=== PATIENT | female | born 1940 | race Caucasian/White ===

== ENCOUNTER 2020-12-25 13:53 | Inpatient (IN) | payer OTHER, MEDICAID ==
[~2020-12-25] VITALS: Ht 152.4 cm; Wt 79.4 kg
[~2020-12-25 13:53] MED LIST: ATOR20TA65 MT; BRIM5DRO6 EACHEYE; BUSP10TA3 MT; CARV3.1242 MT; CHOL400D7 MT; DEME300T8 MT; DONE5TAB26 MT; IRBE150T24 MT; KETO5DRO80 EACHEYE; LEVO25TA7 PO; LUBI24CA5 MT; MEMA5TAB7 MT; METF-416 PO; NEOM7.5D8 EACHEYE; POTA8CAP20 MT; RALO60TA13 MT
[2020-12-25 14:56] LABS: BASOPHILS % 0.3 % (0.0-2.0); EOSINOPHILS % 0.2 % (0.0-5.0); HEMATOCRIT. 32.7 % (36.0-48.0); HEMOGLOBIN. 11.1 g/dL (12.0-16.0); LYMPHOCYTES % 7.4 % (20.0-50.0); MEAN CORPUSCULAR HEMOGLOBIN 28.6 pg (28.0-32.0); MEAN CORPUSCULAR VOLUME 83.9 fL (81.0-99.0); MEAN PLATELET VOLUME 7.6 fl (7.4-10.4); MONOCYTES % 7.8 % (2.0-8.0); NEUTROPHILS % 84.3 % (40.0-76.0); PLATELET 257 x1000/uL (130-400); RED CELL DISTRIBUTION WIDTH 15.4 % (11.6-14.6)
[2020-12-25 15:02] LABS: CHLORIDE 83 mEq/L (98-107)
[2020-12-25] MEDS ORDERED: FUROSEMIDE 100MG/10ML VIAL IV NR (15:42)
[2020-12-25] MEDS ORDERED: CALCIUM CHLORIDE 1GM/10ML SYR IV NR (15:45)
[2020-12-25] MEDS ORDERED: INSULIN REGULAR (HUMULIN R) 300UNITS/3ML VIAL IV NR (15:45)
[2020-12-25] MEDS ORDERED: DEXTROSE 50% WATER 50ML SYRINGE IV NR (15:45)
[2020-12-25] MEDS ORDERED: ALBUTEROL (0.083%) 2.5MG/3ML NEB HHN NR (15:45)
[2020-12-25] MEDS ORDERED: LORAZEPAM 2MG/ML CPJ IV ONE (17:45)
[2020-12-25 18:22] LABS: CHLORIDE 83 mEq/L (98-107)
[2020-12-25 21:10] VITALS: BP 157/93
[2020-12-25 21:53] VITALS: BP 157/93
[2020-12-25] MEDS ORDERED: DEXTROSE 50% WATER 50ML SYRINGE IV PRN (22:45)
[2020-12-25] MEDS ORDERED: CLONIDINE 0.1MG TABLET PO PRN (22:45)
[2020-12-25] MEDS ORDERED: ACETAMINOPHEN 325MG TABLET PO PRN (22:45)
[2020-12-25] MEDS ORDERED: SODIUM CHLORIDE 3% 500 ML IV NR (23:00)
[2020-12-25] MEDS ORDERED: SODIUM CHLORIDE 3% 200 ML IV NR (23:59)
[2020-12-26] VITALS (13 sets, daily range): BP systolic 99–143; BP diastolic 63–86
[2020-12-26] MEDS: DEMECLOCYCLINE HCL 300MG TABLET PO SCH ×3 (01:13→13:44)
[2020-12-26 06:24] LABS: BASOPHILS % 0.4 % (0.0-2.0); HEMATOCRIT. 31.9 % (36.0-48.0); LYMPHOCYTES % 10.3 % (20.0-50.0); MEAN CORPUSCULAR HEMOGLOBIN 28.3 pg (28.0-32.0); MEAN CORPUSCULAR VOLUME 82.1 fL (81.0-99.0); MONOCYTES % 13.9 % (2.0-8.0); NEUTROPHILS % 74.4 % (40.0-76.0); PLATELET 252 x1000/uL (130-400); RED BLOOD CELL COUNT 3.88 mill/uL (4.2-5.4); RED CELL DISTRIBUTION WIDTH 15.6 % (11.6-14.6)
[2020-12-26 06:26] LABS: CHLORIDE 84 mEq/L (98-107)
[2020-12-26 06:51] LABS: T4 FREE 1.42 ng/dL (0.76-1.46)
[2020-12-26] MEDS: LEVOTHYROXINE SODIUM 25MCG TABLET PO SCH (07:50)
[2020-12-26] MEDS: INSULIN LISPRO 100 UNITS/ML SUBCUT SCH ×4 (07:51→21:52)
[2020-12-26] MEDS: BLOOD SUGAR DIAGNOSTIC STRIP TEST SCH ×4 (07:51→21:39)
[2020-12-26] MEDS: KETOROLAC TROMETHAMINE 0.4% OPHTH 5ML EACHEYE SCH ×4 (08:49→21:39)
[2020-12-26] MEDS: LOSARTAN POTASSIUM 50 MG TABLET PO SCH (08:50)
[2020-12-26] MEDS: BRIMONIDINE 0.2% OPHTH DROPS 5ML EACHEYE SCH ×2 (08:50→17:28)
[2020-12-26] MEDS: ENOXAPARIN 40MG/0.4ML SYR SUBCUT SCH (08:51)
[2020-12-26] MEDS ORDERED: MEDICATION NOT ON FORMULARY EA (Brimonidine Tartrate 1 DROP) EACHEYE SCH (09:00)
[2020-12-26] MEDS ORDERED: *PATIENT'S OWN MEDICATION STORAGE XX SCH (11:30)
[2020-12-26 12:09] LABS: CHLORIDE 84 mEq/L (98-107)
[2020-12-26] MEDS: FUROSEMIDE 40MG/4ML VIAL IVP SCH (21:38)
[2020-12-27] VITALS (12 sets, daily range): BP systolic 99–149; BP diastolic 46–84
[2020-12-27 06:42] LABS: CHLORIDE 85 mEq/L (98-107)
[2020-12-27 06:54] LABS: HEMATOCRIT. 30.7 % (36.0-48.0); HEMOGLOBIN. 10.6 g/dL (12.0-16.0); MEAN CORPUSCULAR HEMOGLOBIN 28.7 pg (28.0-32.0); MEAN CORPUSCULAR VOLUME 83.6 fL (81.0-99.0); MEAN PLATELET VOLUME 7.8 fl (7.4-10.4); PLATELET 232 x1000/uL (130-400); RED BLOOD CELL COUNT 3.68 mill/uL (4.2-5.4); RED CELL DISTRIBUTION WIDTH 15.6 % (11.6-14.6)
[2020-12-27 06:59] LABS: PHOSPHORUS 4.2 mg/dL (2.5-4.9)
[2020-12-27] MEDS: BLOOD SUGAR DIAGNOSTIC STRIP TEST SCH ×4 (07:54→20:29)
[2020-12-27] MEDS: INSULIN LISPRO 100 UNITS/ML SUBCUT SCH ×4 (08:10→20:52)
[2020-12-27] MEDS: BRIMONIDINE 0.2% OPHTH DROPS 5ML EACHEYE SCH ×2 (08:10→18:08)
[2020-12-27] MEDS: KETOROLAC TROMETHAMINE 0.4% OPHTH 5ML EACHEYE SCH ×4 (08:10→20:51)
[2020-12-27] MEDS: FUROSEMIDE 40MG/4ML VIAL IVP SCH ×2 (08:10→20:51)
[2020-12-27] MEDS: LEVOTHYROXINE SODIUM 25MCG TABLET PO SCH (08:11)
[2020-12-27] MEDS: ENOXAPARIN 40MG/0.4ML SYR SUBCUT SCH (08:11)
[2020-12-27] MEDS: LOSARTAN POTASSIUM 50 MG TABLET PO SCH (08:11)
[2020-12-27 08:55] LABS: CLARITY URINE CLOUDY (CLEAR); COLOR URINE DK YELLOW (YELLOW); KETONES URINE NEGATIVE (NEGATIVE); LEUKOCYTE ESTERASE URINE TRACE (NEGATIVE); NITRITE URINE NEGATIVE (NEGATIVE); OCCULT BLOOD URINE TRACE (NEGATIVE); PROTEIN URINE TRACE (NEGATIVE); SPECIFIC GRAVITY URINE 1.026 (1.005-1.030); UROBILINOGEN URINE 0.2 E.U./dL (0.2-1.0)
[2020-12-27] MEDS ORDERED: POTASSIUM CHLORIDE 20MEQ TABLET SR PO NR (11:00)
[2020-12-27] MEDS ORDERED: MAGNESIUM 2 G PREMIX 50 ML IV NR (13:00)
[2020-12-27] MEDS ORDERED: LORAZEPAM 2MG/ML CPJ IV PRN (16:45)
[2020-12-27] MEDS ORDERED: ONDANSETRON HCL 4MG/2ML INJ IV PRN (16:45)
[2020-12-27] MEDS ORDERED: BISACODYL 10MG SUPP PR PRN (16:45)
[2020-12-27] MEDS ORDERED: HYDROCODONE/ACETAMINOPHEN 5/325MG TABLET PO PRN (16:45)
[2020-12-27] MEDS ORDERED: IPRATROPIUM/ALBUTEROL 0.5-3(2.5)MG/3ML NEB HHN PRN (16:45)
[2020-12-27] MEDS ORDERED: FAMOTIDINE 20MG TABLET PO SCH (21:00)
[2020-12-27] MEDS ORDERED: NALOXONE HCL 0.4MG/ML VIAL IV PRN (23:00)
[2020-12-27] MEDS ORDERED: IOHEXOL-300 100 ML BOTTLE ONE (23:25)
[2020-12-28] VITALS (10 sets, daily range): BP systolic 103–152; BP diastolic 48–77
[2020-12-28 06:11] LABS: PLATELET ESTIMATE NORMAL
[2020-12-28 06:57] LABS: CHLORIDE 88 mEq/L (98-107)
[2020-12-28 07:08] LABS: PHOSPHORUS 4.8 mg/dL (2.5-4.9)
[2020-12-28 07:11] LABS: HEMATOCRIT. 32.1 % (36.0-48.0); MEAN CORPUSCULAR HEMOGLOBIN 28.4 pg (28.0-32.0); MEAN PLATELET VOLUME 7.8 fl (7.4-10.4); PLATELET 258 x1000/uL (130-400); RED BLOOD CELL COUNT 3.87 mill/uL (4.2-5.4); RED CELL DISTRIBUTION WIDTH 15.6 % (11.6-14.6)
[2020-12-28] MEDS: BLOOD SUGAR DIAGNOSTIC STRIP TEST SCH ×2 (07:30→13:10)
[2020-12-28] MEDS: INSULIN LISPRO 100 UNITS/ML SUBCUT SCH ×2 (08:00→13:07)
[2020-12-28 09:01] LABS: SODIUM URINE RANDOM 35 mEq/L
[2020-12-28] MEDS: LEVOTHYROXINE SODIUM 25MCG TABLET PO SCH (09:04)
[2020-12-28] MEDS: ENOXAPARIN 40MG/0.4ML SYR SUBCUT SCH (09:04)
[2020-12-28] MEDS: LOSARTAN POTASSIUM 50 MG TABLET PO SCH (09:04)
[2020-12-28] MEDS: KETOROLAC TROMETHAMINE 0.4% OPHTH 5ML EACHEYE SCH ×3 (09:05→18:48)
[2020-12-28] MEDS: BRIMONIDINE 0.2% OPHTH DROPS 5ML EACHEYE SCH ×2 (09:05→18:48)
[2020-12-28 12:37] LABS: PLATELET ESTIMATE NORMAL
[2020-12-28] MEDS: FUROSEMIDE 40MG/4ML VIAL IVP SCH (13:10)
[2020-12-28] MEDS ORDERED: FURO-151 MT (13:56)
[2020-12-28] MEDS ORDERED: FUROSEMIDE 40MG TABLET PO SCH (21:00)
== END 2020-12-28 18:57 | disposition home or self-care (01) | DRG 291 ==
LOC: ER 13:53 → 5EST 17:08 → EDBEDREQSVC 17:09 → EDBEDREQTM 17:45 → ENRESERV 19:34
PROVIDERS: ADMIT Internal Medicine; ATTEND Internal Medicine
DX: I11.0 Hypertensive heart disease with heart failure (principal); I50.23 Acute on chronic systolic (congestive) heart failure; J96.91 Respiratory failure, unspecified with hypoxia; E87.1 Hypo-osmolality and hyponatremia; G93.49 Other encephalopathy; E11.9 Type 2 diabetes mellitus without complications; I25.10 Atherosclerotic heart disease of native coronary artery without angina pectoris; F03.90 Unspecified dementia, unspecified severity, without behavioral disturbance, psychotic disturbance, mood disturbance, and anxiety; K80.20 Calculus of gallbladder without cholecystitis without obstruction; I34.0 Nonrheumatic mitral (valve) insufficiency; Z20.822 Contact with and (suspected) exposure to COVID-19; E03.9 Hypothyroidism, unspecified; E78.5 Hyperlipidemia, unspecified; E87.5 Hyperkalemia; I25.2 Old myocardial infarction; Z79.899 Other long term (current) drug therapy; Z82.49 Family history of ischemic heart disease and other diseases of the circulatory system; Z83.3 Family history of diabetes mellitus; Z95.1 Presence of aortocoronary bypass graft; Z95.2 Presence of prosthetic heart valve; Z79.84 Long term (current) use of oral hypoglycemic drugs
CPT/HCPCS: 36415; 71045; 71250; 74177; 80048; 80053; 81003; 82533; 82962; 83036; 83735; 83880; 83935; 84100; 84300; 84439; 84443; 84484; 85025; 87426; 93005; 93970; 99291; J1650; J1815; J1940; J3475; J3490; J7040; Q9967

== ENCOUNTER 2021-03-22 21:00 | Inpatient (IN) | payer OTHER, MEDICAID ==
[~2021-03-22] VITALS: Ht 152.4 cm; Wt 80.7 kg
[~2021-03-22 21:00] MED LIST changes: -DEME300T8 MT; +FURO-151 MT; -POTA8CAP20 MT
[2021-03-22 23:24] LABS: CHLORIDE 87 mEq/L (98-107)
[2021-03-22] MEDS ORDERED: FUROSEMIDE 40MG/4ML VIAL IVP NR (23:30)
[2021-03-22 23:31] LABS: BASOPHILS % 0.4 % (0.0-2.0); EOSINOPHILS % 1.1 % (0.0-5.0); HEMATOCRIT. 32.6 % (36.0-48.0); HEMOGLOBIN. 10.9 g/dL (12.0-16.0); LYMPHOCYTES % 9.7 % (20.0-50.0); MEAN CORPUSCULAR HEMOGLOBIN 26.9 pg (28.0-32.0); MEAN CORPUSCULAR VOLUME 80.4 fL (81.0-99.0); MEAN PLATELET VOLUME 8.7 fl (7.4-10.4); MONOCYTES % 13.5 % (2.0-8.0); NEUTROPHILS % 75.3 % (40.0-76.0); PLATELET 273 x1000/uL (130-400); RED BLOOD CELL COUNT 4.05 mill/uL (4.2-5.4); RED CELL DISTRIBUTION WIDTH 16.6 % (11.6-14.6)
[2021-03-23 09:20] VITALS: BP 121/79
[2021-03-23] MEDS ORDERED: ENOXAPARIN 80MG/0.8ML SYR SUBCUT SCH (11:00)
[2021-03-23] MEDS: FUROSEMIDE 40MG/4ML VIAL IVP SCH (11:46)
[2021-03-23 12:00] VITALS: BP 123/99
[2021-03-23] MEDS ORDERED: DILT240T12 PO (14:29)
[2021-03-23] MEDS ORDERED: METF500S7 PO (14:29)
[2021-03-23] MEDS ORDERED: DIGO125T80 PO (14:29)
[2021-03-23 16:00] VITALS: BP 132/66
[2021-03-23] MEDS ORDERED: CLONIDINE 0.1MG TABLET PO PRN (17:45)
[2021-03-23] MEDS ORDERED: IPRATROPIUM/ALBUTEROL 0.5-3(2.5)MG/3ML NEB HHN PRN (17:45)
[2021-03-23] MEDS ORDERED: LORAZEPAM 2MG/ML CPJ IV PRN (17:45)
[2021-03-23] MEDS ORDERED: DIPHENHYDRAMINE 50MG/ML VIAL IV PRN (17:45)
[2021-03-23] MEDS ORDERED: BISACODYL 10MG SUPP PR PRN (17:45)
[2021-03-23] MEDS ORDERED: HYDROCODONE/ACETAMINOPHEN 5/325MG TABLET PO PRN (17:45)
[2021-03-23] MEDS ORDERED: NALOXONE HCL 0.4MG/ML VIAL IV PRN (18:00)
[2021-03-23] MEDS ORDERED: DEXTROSE 50% WATER 50ML SYRINGE IV PRN (18:00)
[2021-03-23 20:00] VITALS: BP 130/73
[2021-03-23] MEDS: FAMOTIDINE 20MG TABLET PO SCH (21:14)
[2021-03-23] MEDS: ENOXAPARIN 80MG/0.8ML SYR SUBCUT SCH (21:15)
[2021-03-23] MEDS: CARVEDILOL 6.25 MG TABLET PO SCH (21:15)
[2021-03-23] MEDS: BLOOD SUGAR DIAGNOSTIC STRIP TEST SCH (21:15)
[2021-03-23] MEDS: INSULIN LISPRO 100 UNITS/ML SUBCUT SCH (21:22)
[2021-03-23 22:03] LABS: HEMATOCRIT. 32.4 % (36.0-48.0); HEMOGLOBIN. 10.9 g/dL (12.0-16.0); MEAN CORPUSCULAR VOLUME 80.3 fL (81.0-99.0); MEAN PLATELET VOLUME 7.8 fl (7.4-10.4); PLATELET 290 x1000/uL (130-400); RED BLOOD CELL COUNT 4.04 mill/uL (4.2-5.4); RED CELL DISTRIBUTION WIDTH 16.6 % (11.6-14.6)
[2021-03-23 22:12] LABS: CHLORIDE 87 mEq/L (98-107)
[2021-03-23 22:19] LABS: PLATELET ESTIMATE NORMAL
[2021-03-23 22:23] LABS: T4 FREE 1.28 ng/dL (0.76-1.46)
[2021-03-24] VITALS: BP 125/59
[2021-03-24 04:00] VITALS: BP 121/66
[2021-03-24] MEDS: BLOOD SUGAR DIAGNOSTIC STRIP TEST SCH ×4 (06:27→21:58)
[2021-03-24] MEDS: INSULIN LISPRO 100 UNITS/ML SUBCUT SCH ×4 (06:27→21:00)
[2021-03-24 07:11] LABS: BASOPHILS % 0.6 % (0.0-2.0); EOSINOPHILS % 1.5 % (0.0-5.0); HEMATOCRIT. 32.8 % (36.0-48.0); HEMOGLOBIN. 11.1 g/dL (12.0-16.0); LYMPHOCYTES % 7.5 % (20.0-50.0); MEAN CORPUSCULAR HEMOGLOBIN 27.2 pg (28.0-32.0); MEAN CORPUSCULAR VOLUME 80.6 fL (81.0-99.0); MONOCYTES % 14.7 % (2.0-8.0); NEUTROPHILS % 75.7 % (40.0-76.0); PLATELET 293 x1000/uL (130-400); RED BLOOD CELL COUNT 4.08 mill/uL (4.2-5.4); RED CELL DISTRIBUTION WIDTH 16.6 % (11.6-14.6)
[2021-03-24 07:22] LABS: INR 1.2; PROTHROMBIN TIME 12.4 sec (9.6-11.0)
[2021-03-24 08:00] VITALS: BP 143/87
[2021-03-24 08:17] LABS: CHLORIDE 88 mEq/L (98-107)
[2021-03-24] MEDS: FUROSEMIDE 40MG/4ML VIAL IVP SCH ×2 (08:18→18:23)
[2021-03-24] MEDS: CARVEDILOL 6.25 MG TABLET PO SCH (08:19)
[2021-03-24] MEDS: ENOXAPARIN 80MG/0.8ML SYR SUBCUT SCH ×2 (08:19→22:03)
[2021-03-24 12:00] VITALS: BP 110/58
[2021-03-24] MEDS: SILDENAFIL CITRATE 20MG TABLET PO SCH ×2 (14:07→22:03)
[2021-03-24 16:00] VITALS: BP_SYST 113; BP_SYST 115; BP_DIAS 60
[2021-03-24 20:00] VITALS: BP 115/51
[2021-03-24] MEDS: FAMOTIDINE 20MG TABLET PO SCH (22:03)
[2021-03-25] VITALS: BP 125/60
[2021-03-25 04:00] VITALS: BP 105/58
[2021-03-25] MEDS: SILDENAFIL CITRATE 20MG TABLET PO SCH ×3 (06:32→21:52)
[2021-03-25] MEDS: BLOOD SUGAR DIAGNOSTIC STRIP TEST SCH ×4 (06:32→21:52)
[2021-03-25] MEDS: INSULIN LISPRO 100 UNITS/ML SUBCUT SCH ×4 (06:32→22:00)
[2021-03-25 07:48] LABS: HEMATOCRIT. 33.4 % (36.0-48.0); HEMOGLOBIN. 11.4 g/dL (12.0-16.0); MEAN CORPUSCULAR HEMOGLOBIN 27.4 pg (28.0-32.0); MEAN CORPUSCULAR VOLUME 80.4 fL (81.0-99.0); PLATELET 280 x1000/uL (130-400); RED BLOOD CELL COUNT 4.15 mill/uL (4.2-5.4); RED CELL DISTRIBUTION WIDTH 16.4 % (11.6-14.6)
[2021-03-25 07:52] LABS: CHLORIDE 86 mEq/L (98-107)
[2021-03-25 08:17] VITALS: BP 92/52
[2021-03-25] MEDS: ENOXAPARIN 80MG/0.8ML SYR SUBCUT SCH ×2 (08:28→21:52)
[2021-03-25] MEDS: FUROSEMIDE 40MG/4ML VIAL IVP SCH ×2 (08:28→16:45)
[2021-03-25 11:37] LABS: BG BASE EXCESS 9.3 mmol/L (-2.0-2.0); BG CARBOXYHEMOGLOBIN 0.5 % (0.5-1.5); BG FRACTION INSPIRED OXYGEN 21; BG HCO3 ACT 33.2 mmol/L (22.0-26.0); BG METHEMOGLOBIN 0.3 % (0.0-1.5); BG OXYHEMOGLOBIN 95.2 % (94.0-97.0); BG PCO2 42.4 mmHg (35.0-45.0); BG PH 7.512 (7.350-7.450); BG SAMPLE SITE RIGHT RADIAL; BG TOTAL HEMOGLOBIN 11.1 g/dL (12.0-18.0); BG VENT MODE ROOM AIR
[2021-03-25 11:49] VITALS: BP 126/63
[2021-03-25 15:31] VITALS: BP 119/74
[2021-03-25 18:27] LABS: PLATELET ESTIMATE NORMAL
[2021-03-25 20:00] VITALS: BP_SYST 122; BP_SYST 124; BP_DIAS 56; BP_DIAS 77
[2021-03-25] MEDS: FAMOTIDINE 20MG TABLET PO SCH (21:52)
[2021-03-26] VITALS: BP 106/58
[2021-03-26 04:00] VITALS: BP 135/76
[2021-03-26 05:27] LABS: HEMATOCRIT 30.7 % (36.0-48.0); HEMOGLOBIN 10.6 g/dL (12.0-16.0); MEAN CORPUSCULAR HEMOGLOBIN 27.3 pg (28.0-32.0); MEAN CORPUSCULAR VOLUME 79.4 fL (81.0-99.0); PLATELET 248 x1000/uL (130-400); RED BLOOD CELL COUNT 3.87 mill/uL (4.2-5.4); RED CELL DISTRIBUTION WIDTH 16.5 % (11.6-14.6)
[2021-03-26] MEDS: BLOOD SUGAR DIAGNOSTIC STRIP TEST SCH ×2 (05:58→11:40)
[2021-03-26] MEDS: INSULIN LISPRO 100 UNITS/ML SUBCUT SCH ×2 (05:58→11:50)
[2021-03-26] MEDS: SILDENAFIL CITRATE 20MG TABLET PO SCH ×2 (05:59→13:59)
[2021-03-26 06:45] LABS: CHLORIDE 86 mEq/L (98-107)
[2021-03-26] MEDS: FUROSEMIDE 40MG/4ML VIAL IVP SCH (08:18)
[2021-03-26] MEDS: ENOXAPARIN 80MG/0.8ML SYR SUBCUT SCH (08:19)
[2021-03-26] MEDS ORDERED: POTASSIUM CHLORIDE 20MEQ TABLET SR PO NR (09:30)
[2021-03-26 11:53] VITALS: BP 99/49
[2021-03-26 16:00] VITALS: BP 119/69
== END 2021-03-26 18:08 | disposition home or self-care (01) | DRG 291 ==
LOC: ER 21:00 → 8WST 03-23 00:03
PROVIDERS: ADMIT Internal Medicine; ATTEND Internal Medicine
DX: I11.0 Hypertensive heart disease with heart failure (principal); I50.33 Acute on chronic diastolic (congestive) heart failure; E87.1 Hypo-osmolality and hyponatremia; I48.20 Chronic atrial fibrillation, unspecified; Z20.822 Contact with and (suspected) exposure to COVID-19; D64.9 Anemia, unspecified; E03.9 Hypothyroidism, unspecified; E11.65 Type 2 diabetes mellitus with hyperglycemia; E78.5 Hyperlipidemia, unspecified; F03.90 Unspecified dementia, unspecified severity, without behavioral disturbance, psychotic disturbance, mood disturbance, and anxiety; I25.10 Atherosclerotic heart disease of native coronary artery without angina pectoris; I34.0 Nonrheumatic mitral (valve) insufficiency; I45.10 Unspecified right bundle-branch block; I27.21 Secondary pulmonary arterial hypertension; E78.00 Pure hypercholesterolemia, unspecified; Z82.49 Family history of ischemic heart disease and other diseases of the circulatory system; Z95.1 Presence of aortocoronary bypass graft; Z79.899 Other long term (current) drug therapy; Z79.84 Long term (current) use of oral hypoglycemic drugs; R06.03 Acute respiratory distress
CPT/HCPCS: 36415; 36600; 71045; 80048; 80053; 82375; 82805; 82962; 83735; 83880; 84300; 84439; 84443; 84484; 85025; 85027; 87426; 93005; 97162; 99285; J1650; J1815; J1940; J2060